=== PATIENT | female | born 1985 | race Caucasian/White ===

== ENCOUNTER 2017-03-23 10:08 | Emergency (ER) | payer OTHER | END 2017-03-23 12:03 | disposition home or self-care (01) | LOC: D.ER 10:08 | DX: H57.12 Ocular pain, left eye (principal); H53.9 Unspecified visual disturbance; F90.9 Attention-deficit hyperactivity disorder, unspecified type ==

== ENCOUNTER → 2019-10-17 09:00 | Outpatient (CLI) | payer OTHER | END | disposition home or self-care (01) | LOC: D.MAMMO 09:00 | PROVIDERS: ATTEND Family Medicine | DX: E89.41 Symptomatic postprocedural ovarian failure (principal) ==